=== PATIENT | female | born 1955 | race Caucasian/White ===

== ENCOUNTER → 2017-03-12 | Outpatient (CLI) | payer OTHER ==
[~2017-03-12] MED LIST: CYCL5TAB PO; NAPR500 OR; OMEP20TA PO
[2017-03-12 10:36] LABS: HEMATOCRIT 42.4 % (35.0-46.0); HEMOGLOBIN 14.5 GM/DL (11.6-15.3); MEAN CELL VOLUME 92.3 FL (80.0-100.0); MEAN CORPUSCULAR HEMOGLOBIN 31.6 PG (27.0-34.0); MEAN CORPUSCULAR HGB CONC 34.2 % (32.0-36.0); MEAN PLATELET VOLUME 9.8 FL (7.0-11.0); PLATELET COUNT 197 TH/MM3 (150-450); RED BLOOD COUNT 4.59 MIL/MM3 (4.00-5.30); RED CELL DISTRIBUTION WIDTH 12.6 % (11.6-17.2); WHITE BLOOD COUNT 5.7 TH/MM3 (4.0-11.0)
[2017-03-12 11:00] LABS: ALBUMIN 3.7 GM/DL (3.4-5.0); AST (GOT) 18 U/L (15-37); BICARBONATE 27.7 MEQ/L (21.0-32.0); BLOOD UREA NITROGEN 11 MG/DL (7-18); CALCIUM 8.3 MG/DL (8.5-10.1); CHLORIDE 104 MEQ/L (98-107); CREATININE 0.75 MG/DL (0.50-1.00); GLOMERULAR FILTRATION RATE 79 ML/MIN (>89); GLUCOSE,FASTING 100 MG/DL (74-99); SODIUM (NA) 138 MEQ/L (136-145)
[2017-03-12 11:01] LABS: CHOLESTEROL 164 MG/DL (120-200); TRIGLYCERIDES 116 MG/DL (42-150)
[2017-03-12 11:13] LABS: ALKALINE PHOSPHATASE 75 U/L (45-117); ALT (GPT) 22 U/L (10-53); CHOLESTEROL/ HDL RATIO 3.45 RATIO; HDL CHOLESTEROL 47.5 MG/DL (40.0-60.0); LDL CHOLESTEROL 93 MG/DL (0-99); TOTAL BILIRUBIN ADULT 0.5 MG/DL (0.2-1.0); TOTAL PROTEIN 7.2 GM/DL (6.4-8.2)
== END ==
LOC: CLAB 10:10
PROVIDERS: ATTEND Family Medicine
DX: R10.10 Upper abdominal pain, unspecified (principal); Z00.00 Encounter for general adult medical examination without abnormal findings
CPT/HCPCS: 36415; 80053; 80061; 84443; 85027

== ENCOUNTER → 2017-04-01 | Outpatient (CLI) | payer OTHER ==
[~2017-04-01] MED LIST changes: +IODIXANOL 320 MG/ML 10 ML VIAL (for Rad CT) IVCONTRAST ONE
--- NOTE | 2017-04-01 15:43 | RADRPT ---
EXAM DATE/TIME: 04/01/2017 13:06 [place] COMPARISON: No previous studies available for comparison. INDICATIONS : Diffuse abdomen pain in upper region. IV CONTRAST: 96 cc Visipaque (iodixanol) IV ORAL CONTRAST: No oral contrast ingested. RADIATION DOSE: 13.89 CTDIvol (mGy) MEDICAL HISTORY : None SURGICAL HISTORY : Appendectomy. Hysterectomy.Colon resection.Hernia sx. ENCOUNTER: Initial ACUITY: 1 day PAIN SCALE: 2/10 LOCATION: Bilateral upper quadrant TECHNIQUE: Volumetric scanning was performed using a multi-row detector CT scanner. The data was post processed with a variety of visualization algorithms including full volume maximum intensity projection, multi -planar sliding thin slab reformation, curved planar reformation, and surface rendering techniques. Using automated exposure control and adjustment of the mA and/or kV according to patient size, radiat ion dose was kept as low as reasonably achievable to obtain optimal diagnostic quality images. DICOM format image data is available electronically for review and comparison. FINDINGS: ABDOMINAL AORTA: Mild/moderate calcific plaque is present throughout the abdominal aorta. There is no evidence of aneu rysmal enlargement or aortic stenosis. Moderate narrowing is identified at the origin of the celiac axis. There is an overlying arcuate ligament causing compression of the vessel. The degree of stenosis is between 50 and 60%. The superior mesenteric artery contains mild eccentric plaque proximally but no evidence of sign ificant stenosis. Single renal arteries are identified bilaterally. Renal arteries are widely patent without signi ficant stenosis. BIFURCATION: Normal. RIGHT PELVIS: Eccentric plaque is identified in the common iliac artery. Iliac vessels are otherwise widely patent without significant stenosis. LEFT PELVIS: Eccentric plaque is identified in the common iliac artery. Iliac vessels are otherwise widely patent without significant stenosis. Miscellaneous: The liver, spleen, pancreas adrenal glands and kidneys appear normal. Postsurgical changes are identified in the right lower abdomen following colon resection and enteroco lonic anastomosis. A 12 mm calculus is identified within the proximal right colon adjacent to the ent erocolonic anastomosis. The distal small bowel appears narrowed however there is no evidence of proxi mal ileus. Multiple diverticula are seen along the sigmoid colon. There is no evidence of active inflammatory di sease. There is no evidence of suspicious mass or lymphadenopathy. CONCLUSION: 1. Moderate narrowing at the origin of the celiac artery secondary to arcuate ligament strain. 2. Mild eccentric plaque in the proximal superior mesenteric artery without significant stenosis. 3. Calcific atherosclerotic disease of the aorta and iliac vessels without significant stenosis. 4. Postsurgical changes in the intestinal tract following proximal partial colectomy and enterocoloni c anastomosis. 5. Uncomplicated colonic diverticulosis. 6. No other significant abnormality. Praneeth Sierra MD on April 01, 2017 at 15:32 Board Certified Radiologist. This report was verified electronically.
== END ==
LOC: HRAD 12:30
DX: R10.10 Upper abdominal pain, unspecified (principal)
CPT/HCPCS: 74174; Q9967

== ENCOUNTER → 2017-07-09 | Outpatient (CLI) | payer OTHER ==
[~2017-07-09] MED LIST changes: -IODIXANOL 320 MG/ML 10 ML VIAL (for Rad CT) IVCONTRAST ONE; +LACTATED RINGER'S 1000 ML IV PRN; +LIDOCAINE HCL 1% PF 5 ML SYRINGE OTHER ONE; +METOPROLOL TARTRATE 25 MG TAB PO PRN; +PROPOFOL 200 MG/20 ML AMP IV ONE; +SODIUM CHLORID 0.9% 500 ML IV PRN
--- NOTE | 2017-07-09 14:38 | GIPROC ---
[facility] [address] [facility]. [facility], [address] EGD PROCEDURE REPORT EXAM DATE: 07/09/2017 PATIENT NAME: Sherri Santillan MR #: [id number] BIRTHDATE: 1955 ATTENDING: Davin Rios MD ORDER #: [id number] [id number] AUTOMATION ARCHITECT: Brenda Evangelista and Windy Vogt STATUS: outpatient INDICATIONS: The patient is a 61 yr old female here for an EGD due to post-prandial abdominal pain PROCEDURE PERFORMED: EGD w/ biopsy MEDICATIONS: None and Per Anesthesia. TOPICAL ANESTHETIC: none CONSENT: The patient understands the risks and benefits of the procedure and understands that these risks include, but are not limited to: sedation, allergic reaction, infection, perforation and/or bleeding. Alternative means of evaluation and treatment include, among others: physical exam, x-rays, and/or surgical intervention. The patient elects to proceed with this endoscopic procedure. medical equipment was checked for proper function. Hand hygiene and appropriate measures for infection prevention was taken. After the risks, benefits and alternatives of the procedure were thoroughly explained, Informed consent was verified, confirmed and timeout was successfully executed by the treatment team. The patient was anesthetized with topical anesthesia and the Pentax EG-[id number] endoscope was introduced through the mouth and advanced to the . Retroflexion was performed and was normal The gastroscope was then slowly withdrawn and removed. ESOPHAGUS: The mucosa of the esophagus appeared normal. STOMACH: Four small punctate erosions were found in the gastric antrum. A biopsy was performed using cold forceps. Sample obtained for helicobacter pylori testing. DUODENUM: The duodenal mucosa appeared normal. ADVERSE EVENTS: There were no complications. IMPRESSIONS: 1. The esophagus appeared normal 2. Four small erosions were found in the gastric antrum; biopsy was performed 3. Normal duodenal mucosa 4. Retroflexion was performed and was normal RECOMMENDATIONS: 1. Await biopsy results. Biopsy results will not be ready for 7-10 days. If you don't hear from us in two weeks, call our office for biopsy results. 2. No treatment 3. OK to d/c; resume prior diet/medications. PATIENT CONDITION: DISPOSITION: Home REPEAT EXAM: Davin Rios MD eSigned: Davin Rios MD 07/09/2017 2:38 PM cc: Larry Morejon M.D. PATIENT NAME: Sherri Santillan MR#: [id number]
[2017-07-09 15:13] VITALS: BP 102/44; PULSE 80; RESP 20; TEMP 98; O2SAT 99
--- NOTE | 2017-07-10 14:35 | EKG ---
Date Performed: 07/09/2017 Time Performed: 14:09:18 PTAGE: 61 years EKG: Sinus rhythm NORMAL ECG PREVIOUS TRACING : 10/27/2012 08.25 Since previous tracing, no significant change. DOCTOR: Zurdo Kim Interpretating Date/Time 07/10/2017 14:34:33
== END ==
LOC: HSDC 11:51
DX: K25.9 Gastric ulcer, unspecified as acute or chronic, without hemorrhage or perforation (principal); R10.9 Unspecified abdominal pain; F17.200 Nicotine dependence, unspecified, uncomplicated; Z01.810 Encounter for preprocedural cardiovascular examination
CPT/HCPCS: 00731; 43239; 88305; 93005; J7120

== ENCOUNTER 2017-08-20 09:12 | Observation (INO) | payer OTHER ==
[~2017-08-20] VITALS: Ht 177.8 cm; Wt 62.4 kg
[2017-08-20] MEDS ORDERED: LACTATED RINGER'S 1000 ML IV PRN (09:45)
[2017-08-20] MEDS ORDERED: CHLORHEXIDINE GLUCONATE 2 % 1 PACK (2 CLOTHS) TOPICAL PRN (09:45)
[2017-08-20] MEDS ORDERED: SODIUM CHLORID 0.9% 500 ML IV PRN (09:45)
[2017-08-20] MEDS ORDERED: METOPROLOL TARTRATE 25 MG TAB PO PRN (09:45)
[2017-08-20] MEDS ORDERED: LIDOCAINE HCL 1% PF 5 ML SYRINGE OTHER ONE (09:53)
[2017-08-20] MEDS ORDERED: GLYCOPYRROLATE 1 MG/5 ML SYRINGE IV PUSH ONE (09:53)
[2017-08-20] MEDS ORDERED: ROCURONIUM INJ 50 MG/5 ML SYRINGE IV PUSH ONE (09:53)
[2017-08-20] MEDS ORDERED: NEOSTIGMINE 5 MG/5 ML SYRINGE IV PUSH ONE (09:53)
[2017-08-20] MEDS ORDERED: DEXAMETHASONE SOD PHOS 4 MG/ML VIAL IV ONE (09:53)
[2017-08-20] MEDS ORDERED: PHENYLEPH/NS 1000 MCG/10 ML SYR IV ONE (09:53)
[2017-08-20] MEDS ORDERED: PROPOFOL 200 MG/20 ML AMP IV ONE (09:53)
[2017-08-20] MEDS ORDERED: ONDANSETRON HCL 4 MG/2 ML VIAL IV PUSH ONE (09:53)
[2017-08-20] MEDS ORDERED: BUPIVACAINE/EPINEPHRINE 0.5% PF 10 ML VIAL ONE ×2 (10:21)
[2017-08-20 10:23] LABS: BASOPHIL # 0.1 TH/MM3 (0-0.2); EOSINOPHIL # 0.1 TH/MM3 (0-0.4); EOSINOPHIL % 1.5 % (0.0-4.0); HEMATOCRIT 42.7 % (35.0-46.0); HEMOGLOBIN 14.7 GM/DL (11.6-15.3); LYMPH % 24.7 % (9.0-44.0); LYMPHOCYTE # 1.5 TH/MM3 (1.0-4.8); MEAN CORPUSCULAR HEMOGLOBIN 31.7 PG (27.0-34.0); MEAN CORPUSCULAR HGB CONC 34.5 % (32.0-36.0); MEAN PLATELET VOLUME 10.6 FL (7.0-11.0); MONO % 7.9 % (0.0-8.0); MONOCYTE # 0.5 TH/MM3 (0-0.9); NEUT % 64.9 % (16.0-70.0); PLATELET COUNT 176 TH/MM3 (150-450); RED BLOOD COUNT 4.64 MIL/MM3 (4.00-5.30); RED CELL DISTRIBUTION WIDTH 12.8 % (11.6-17.2); WHITE BLOOD COUNT 6.2 TH/MM3 (4.0-11.0)
[2017-08-20] MEDS ORDERED: ceFAZolin 2 GM/DEX PREMIX 50 ML IV SCH (10:45)
[2017-08-20] MEDS ORDERED: fentaNYL CITRATE 250 MCG/5 ML AMP ONE (11:36)
[2017-08-20] MEDS ORDERED: ACETAMINOPHEN 1000 MG/100 ML 100 ML IV ONE (11:36)
[2017-08-20] MEDS ORDERED: APREPITANT 40 MG CAP ONE (11:57)
[2017-08-20] MEDS ORDERED: MIDAZOLAM HCL 2 MG/2 ML VIAL ONE (11:57)
[2017-08-20] MEDS ORDERED: Post-op Orders (for Pharmacy) XX ONE (13:30)
[2017-08-20] MEDS ORDERED: diphenhydrAMINE HCL 25 MG CAP PO PRN (13:30)
[2017-08-20] MEDS ORDERED: DO NOT ADM ANY ANTICOAGULANT DRUGS PRN (13:32)
--- NOTE | 2017-08-20 13:34 | PD.OP ---
cc: Kike Lira MD Operative Report Date of Surgery: August 20, 2017 Preoperative Diagnosis: Chronic abdominal pain and nausea, median arcuate ligament syndrome Postoperative Diagnosis: Same Procedure: Laparoscopic division of median arcuate ligament, laparoscopic adhesiolysis Anesthesia: General endotracheal Surgeon: Kike Lira [employer] Integrator(s): Jovanni Mayers Operation and Findings: Indications for procedure Very pleasant 61-year-old woman who is very thin and has had difficulty for some time with chronic postprandial upper abdominal discomfort and nausea. She was found to have an upper abdominal bruit. Imaging demonstrated findings suggestive of 50-60% compression of the origin of the celiac artery consistent with median arcuate ligament syndrome. Plans been made for laparoscopic division. Intraoperative findings filmy omental adhesions infraumbilical midline, taken down laparoscopically. Findings consistent with compression of the origin of the celiac artery due to the median arcuate ligament. Likely benign reactive lymphadenopathy along lesser curvature of stomach. Lymph nodes removed and sent to pathology. Estimated blood loss less than 5 mL Description of procedure in detail Patient was identified as Brigette Santillan, taken to the operating room and placed in a supine position. Sequential compression device were placed on bilateral lower extremities. Following induction of adequate general tracheal anesthesia patient's abdomen was prepped and draped in usual sterile fashion with Betadine. A timeout procedure was performed. Following completion timeout procedure everyone's satisfaction within the room, local anesthetic was infiltrated about 4 cm above the umbilicus in the midline. A 1-2 cm vertical incision was carried out the scalpel dissection continued posteriorly bluntly to the midline fascia. This was incised with a scalpel and entry into the peritoneal cavity facilitative with the hemostat. The 5 mm blunt-tipped balloon Espinoza trocar was placed into the peritoneal cavity its balloon inflated CO2 insufflation to level 50 mmHg ensued. Brief survey demonstrated a mildly nodular liver with a whitish haze to it surface. There were filmy omental adhesions in the infraumbilical midline. For upper abdominal 5 mm trochars were then placed in the peritoneal cavity under direct laparoscopic view after incision and skin with a scalpel. The long rut flex liver retractor was placed beneath the left lateral lobe the liver held anteriorly and held in position with a robot arm. Attention was then turned to taking down the gastrohepatic ligament. This was performed using the harmonic scalpel. Directly beneath the gastrohepatic ligament were several enlarged soft lymph nodes. 2 of these were sent separate from surrounding tissues are removed from the peritoneal cavity using a 5 mm bag. Dissection continued posteriorly until the crossing fibers of the diaphragmatic crura were identified on top of the aorta. Identification of what appeared to be the celiac artery a couple centimeters anterior to the aorta was also noted. Fibers of the diaphragm were then sequentially divided using the harmonic scalpel. With appropriate retraction and careful dissection of the diaphragmatic fibers were divided down to the level of the aorta. Dissection continued inferiorly until a tight band of the median arcuate ligament was identified at the origin of the celiac artery. Using a [place] dissector this was able to be dissected free of the celiac artery and the aorta and then divided carefully with the harmonic scalpel. Dissection right on top of the aorta approximately about 5-6 cm was then performed. Photographs were taken of the completed surgery. Hemostasis was assured. Attention was then turned to lysis of the filmy infraumbilical midline adhesion this was performed using the harmonic scalpel. Survey of the operative field on top of the aorta demonstrated no evidence of hemorrhage. 10 cc of local anesthetic was placed in the operative field overlying the aorta and the divided diaphragmatic musculature. The rut flex liver retractor was then removed. Trochars were removed under direct visualization there was no evidence of bleeding from trocar sites. The abdomen was desufflated actively through the supraumbilical port which was then removed. Supraumbilical fascial incision was closed with a single [id number] 0 Vicryl suture. Port site skin incisions were approximated with 4-0 Monocryl subcuticular sutures. Dressings were applied with Mastisol and half-inch brown Steri-Strips. Patient tolerated the procedure without apparent complication. Sponge needle and instrument counts were correct at the end of the case. The patient was transported to PACU in stable condition. Dr. Jovanni Mayers is a board certified general surgeon. His assistance in this case was crucial due to the relative rare nature of this operative procedure and the need to have another board-certified surgeon skill set available to provide appropriate visualization and exposure. Without his assistance, the safety and efficiency of this procedure would have been compromised. Kike Liar MD August 20, 2017 13:34
[2017-08-20] MEDS ORDERED: NORC5TAB PO (13:37)
[2017-08-20] MEDS ORDERED: CYCL5TAB PO (13:37)
--- NOTE | 2017-08-20 13:42 | HHI.DS ---
Discharge Summary Admission Date Discharge Date: August 21, 2017 Admitting Diagnosis Chronic abdominal pain, nausea. Median arcuate ligament syndrome Procedures Laparoscopic division of the median arcuate ligament, laparoscopic adhesiolysis Brief History 61-year-old woman with chronic abdominal pain and nausea. An abdominal bruit was discovered in the epigastric position by her cattle dehorner. Imaging discovered findings suggestive of 50-60% compression of the origin of the celiac artery. CBC/BMP: 08/20/17 0950 Significant Findings Laboratory Tests Test 08/20/17 09:50 PE at Discharge All 5 trocar incision sites healing beneath Band-Aid strips Hospital Course Patient was admitted through same-day surgery for her operation as discussed above. She tolerated it well. She desired overnight hospital stay. She is discharged tolerating an oral liquid diet and pain medication by mouth. Pt Condition on Discharge: Good Discharge Disposition: Discharge Home Discharge Instructions DIET: Follow Instructions for: Full Liquid Diet Additional Diet Instructions: A progress diet as tolerated to regular foods. Chew foods well before swallowing. Sit upright during meals. Eat more frequent smaller meals. Activities you can perform: Shower Only-No Bath Activities to Avoid: Strenuous Activity, Driving Kike Lira MD August 20, 2017 13:42
[2017-08-20] MEDS ORDERED: *ONDANSETRON 4 MG VIAL PERIprocedural Use ONLY ONE (13:46)
[2017-08-20] MEDS ORDERED: MORPHINE SULFATE 4 MG/ML INJ IV PUSH PRN (14:15)
[2017-08-20] MEDS ORDERED: ONDANSETRON ODT 4 MG TAB PO PRN (14:15)
[2017-08-20] MEDS ORDERED: *PROMETHAZINE 25 MG/ML VIAL PERIprocedural use ONLY ONE (14:25)
[2017-08-20 14:51] VITALS: BP 104/51; PULSE 65; RESP 16; TEMP 97.2; O2SAT 99
[2017-08-20] MEDS: LACTATED RINGER'S 1000 ML INJ 1,000 ML IV SCH (15:43)
[2017-08-20 16:49] VITALS: BP 107/58; PULSE 77; RESP 16; TEMP 97; O2SAT 99
[2017-08-20] MEDS: ACETAMINOPHEN 1000 MG/100 ML 100 ML IV SCH ×3 (17:12→17:24)
[2017-08-20 20:00] VITALS: BP 97/52; PULSE 64; RESP 18; TEMP 97.1; O2SAT 97
[2017-08-20] MEDS: ACETAMINOPHEN/HYDROcodone 325 MG/5 MG TAB PO PRN (22:07)
[2017-08-20 23:37] VITALS: BP 92/52
[2017-08-21] VITALS: PULSE 64; RESP 18; TEMP 97.2; O2SAT 94
[2017-08-21] MEDS: LACTATED RINGER'S 1000 ML INJ 1,000 ML IV SCH
[2017-08-21] MEDS: ACETAMINOPHEN 1000 MG/100 ML 100 ML IV SCH ×4 (00:37→06:02)
[2017-08-21] MEDS: ACETAMINOPHEN/HYDROcodone 325 MG/5 MG TAB PO PRN (03:44)
[2017-08-21 04:00] VITALS: BP 96/49; PULSE 66; RESP 18; TEMP 97.4; O2SAT 93
[2017-08-21 08:00] VITALS: BP_SYST 95; PULSE 59; RESP 18; TEMP 97.7; O2SAT 94
[2017-08-21] MEDS ORDERED: PNEUMOCOCCAL POLYVALENT INJ 25 MCG/0.5 ML SYR IM ONE (10:00)
[2017-08-21] MEDS ORDERED: ENOXAPARIN SODIUM 30 MG/0.3 ML SYRINGE SQ SCH (12:30)
== END 2017-08-21 09:54 | disposition home or self-care (01) ==
LOC: HSDC 09:12 → HSDI 13:26 → N07B 14:40
PROVIDERS: ADMIT Surgery Trauma Surgery; ATTEND Surgery Trauma Surgery
DX: I77.4 Celiac artery compression syndrome (principal); R10.9 Unspecified abdominal pain; G89.29 Other chronic pain; R11.0 Nausea; K66.0 Peritoneal adhesions (postprocedural) (postinfection); R09.89 Other specified symptoms and signs involving the circulatory and respiratory systems; I10 Essential (primary) hypertension; F17.200 Nicotine dependence, unspecified, uncomplicated; Z86.718 Personal history of other venous thrombosis and embolism
CPT/HCPCS: 00770; 35761; 38570; 85025; 88305; 94150; 96365; 96366; G0378; J0131; J1100; J2250; J2370; J2405; J2550; J2710; J3010; J7120; J8501